=== PATIENT | female | born 1980 | race Caucasian/White ===

== ENCOUNTER 2019-05-20 18:22 | Emergency (ER) | payer SELFPAY ==
[2019-05-20] MEDS ORDERED: Ondansetron 4 MG Tab.DIS PO ONE (18:46)
--- NOTE | 2019-05-20 18:53 | EDM.PDOC ---
ED HPI GENERAL MEDICAL PROBLEM - General Chief Complaint: General Stated Complaint: PT HAS FLU Time Seen by Provider: 05/20/19 18:25 Source of Information: Reports: Patient History Limitations: Reports: No Limitations - History of Present Illness INITIAL COMMENTS - FREE TEXT/NARRATIVE: PEDS HISTORY AND PHYSICAL: History of present illness: Patient is a 39-year-old female who presents to the emergency room today with complaints of nausea, vomiting and subjective fever and chills since Friday. She is here with her daughter who is also checked in stating that everyone in the house "has been sick over the past few days. Patient reports she is concerned as they all have the flu. Patient denies any fever, chills, headache, change in vision, syncope or near syncope. Denies any chest pain, back pain, shortness of breath or cough. Denies any abdominal pain, diarrhea, constipation or dysuria. Denies any chance of . Has not noted any blood in urine or stool. Patient has been eating and drinking appropriately. Review of systems: As per history of present illness and below otherwise all systems reviewed and negative. Past medical history: As per history of present illness and as reviewed below otherwise noncontributory. Surgical history: As per history of present illness and as reviewed below otherwise noncontributory. Social history: No reported history of drug or alcohol abuse. Family history: As per history of present illness and as reviewed below otherwise noncontributory. Physical exam: General: Well-developed and well nourished 39-year-old female. Alert and oriented. Nontoxic appearing and in no acute distress. HEENT: Atraumatic, normocephalic, pupils reactive, negative for conjunctival pallor or scleral icterus, mucous membranes moist, throat clear, neck supple, nontender, trachea midline. TMs normal bilaterally, no cervical adenopathy or nuchal rigidity. Lungs: Clear to auscultation, breath sounds equal bilaterally, chest nontender. Heart: S1S2, regular rate and rhythm, no overt murmurs Abdomen: Soft, nondistended, nontender. Negative for masses or hepatosplenomegaly. Normal abdominal bowel sounds. Pelvis: Stable nontender. Extremities: Atraumatic, full range of motion without defects or deficits. Neurovascular unremarkable. Neuro: Awake, alert, and age appropriate. Cranial nerves II through XII unremarkable. Cerebellum unremarkable. Motor and sensory unremarkable throughout. Exam nonfocal. Skin: Normal turgor, no overt rash or lesions Notes: We discussed doing lab work along with doing IV fluids. Patient would prefer to try the Zofran ODT and an oral challenge afterwards. She did keep down popsicle and juice. States she does feel improvement. She would like to be discharged to home with supportive care measures. Diagnostics: Influenza Therapeutics: Zofran ODT Prescription: Zofran (#10) Impression: Viral illness Plan: 1. Please use Tylenol and/or Ibuprofen as needed for pain and fever management. 2. Get plenty of Rest. Encourage fluids to prevent dehydration. 3. Please follow up with your primary care provider. Return to the ED as needed as discussed. Definitive disposition and diagnosis as appropriate pending reevaluation and review of above. - Related Data Allergies Allergy/AdvReac Type Severity Reaction Status Date / Time meloxicam [From P[employer]] Allergy Mild Hives Verified 05/20/19 18:52 Home Meds: Home Meds Amitriptyline HCl 150 mg PO DAILY 05/20/19 [History] Citalopram [Citalopram HBr] 20 mg PO DAILY 05/20/19 [History] metFORMIN HCl [Metformin HCl] 500 mg PO DAILY 05/20/19 [History] ED ROS GENERAL - Review of Systems Review Of Systems: ROS reveals no pertinent complaints other than HPI. ED EXAM, GENERAL - Physical Exam Exam: See Below (See dictation) Course - Vital Signs Last Recorded V/S: Last Vital Signs Temp 94.8 F L 05/20/19 18:55 Pulse 94 05/20/19 19:22 Resp 18 05/20/19 19:22 BP 149/93 H 05/20/19 19:22 Pulse Ox 94 L 05/20/19 19:22 - Orders/Labs/Meds Meds: Medications Discontinued Medications Generic Name Dose Route Start Last Admin Trade Name Freq PRN Reason Stop Dose Admin Ondansetron HCl 4 mg 05/20/19 18:46 05/20/19 18:50 Zofran Odt PO 05/20/19 18:47 4 mg ONETIME ONE Administration Departure - Departure Time of Disposition: 19:35 Disposition: Home, Self-Care 01 Clinical Impression: Viral illness - Discharge Information Instructions: Viral Illness, Adult Referrals: PCP,None [Primary Care Provider] - Forms: ED Department Discharge Additional Instructions: The following information is given to patients seen in the emergency department who are being discharged to home. This information is to outline your options for follow-up care. We provide all patients seen in our emergency department with a follow-up referral. The need for follow-up, as well as the timing and circumstances, are variable depending upon the specifics of your emergency department visit. If you don't have a primary care physician on staff, we will provide you with a referral. We always advise you to contact your personal physician following an emergency department visit to inform them of the circumstance of the visit and for follow-up with them and/or the need for any referrals to a consulting specialist. The emergency department will also refer you to a specialist when appropriate. This referral assures that you have the opportunity for follow-up care with a specialist. All of these measure are taken in an effort to provide you with optimal care, which includes your follow-up. Under all circumstances we always encourage you to contact your private physician who remains a resource for coordinating your care. When calling for follow-up care, please make the office aware that this follow-up is from your recent emergency room visit. If for any reason you are refused follow-up, please contact the [facility] Department at and asked to speak to the emergency department charge nurse. [facility] [address] [place] [id number] [address] [phone] 1. Please use Tylenol and/or Ibuprofen as needed for pain and fever management. 2. Get plenty of Rest. Encourage fluids to prevent dehydration. 3. Please follow up with your primary care provider. Return to the ED as needed as discussed.
== END 2019-05-20 19:45 | disposition home or self-care (01) ==
LOC: MW.ED 18:22
DX: B34.9 Viral infection, unspecified (principal); Z88.8 Allergy status to other drugs, medicaments and biological substances
CPT/HCPCS: 87804; 99284; A9270

== ENCOUNTER 2020-07-01 11:07 | Emergency (ER) | payer MEDICAID | END 2020-07-01 14:11 | disposition left against medical advice (07) | LOC: MW.ED 11:07 | DX: Z53.21 Procedure and treatment not carried out due to patient leaving prior to being seen by health care provider (principal) ==

== ENCOUNTER 2020-07-02 20:04 | Emergency (ER) | payer MEDICAID ==
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
[2020-07-02] MEDS ORDERED: Acetaminophen/oxyCODONE 325-10 MG Tab PO ONE (21:01)
== END 2020-07-02 21:16 | disposition home or self-care (01) ==
LOC: MW.ED 20:04
DX: M54.5 Low back pain (principal); J45.909 Unspecified asthma, uncomplicated; E66.9 Obesity, unspecified; E11.9 Type 2 diabetes mellitus without complications; F41.9 Anxiety disorder, unspecified; Z68.41 Body mass index [BMI] 40.0-44.9, adult; Z88.8 Allergy status to other drugs, medicaments and biological substances; Z79.899 Other long term (current) drug therapy
CPT/HCPCS: 99283; A9270

== ENCOUNTER 2020-07-18 21:33 | Emergency (ER) | payer MEDICAID ==
--- NOTE | 2020-07-18 22:43 | EDM.PDOC ---
ED HPI GENERAL MEDICAL PROBLEM - General Chief Complaint: Upper Extremity Injury/Pain Stated Complaint: RIGHT HAND INJURY Time Seen by Provider: 07/18/20 22:30 - History of Present Illness INITIAL COMMENTS - FREE TEXT/NARRATIVE: 40-year-old female who is otherwise well who is presenting with 2 days of atraumatic gradually worsening pain in the interphalangeal joint of the right thumb it worsens with flexion and extension and is accompanied by a palpable catch and click the pain does not radiate there is no fever no forearm pain no other digit injury or pain pain is associated with swelling that is gradually worsening. No fevers no chills no history of gout no history of similar problems. Right Finger-Thumb Pain Score (Numeric/FACES): 10 - Related Data Allergies Allergy/AdvReac Type Severity Reaction Status Date / Time meloxicam [From [facility]] Allergy Mild Hives Verified 07/18/20 21:58 Home Meds: Home Meds Amitriptyline HCl 150 mg PO DAILY 05/20/19 [History] Acetaminophen/HYDROcodone [Hornitos 325-5 MG] 1 dose PO Q4H #20 tablet 07/02/20 [Rx] Escitalopram Oxalate [Lexapro] 20 mg PO DAILY 07/02/20 [History] Ibuprofen 600 mg PO TID 5 Days #15 tablet 07/18/20 [Rx] Past Medical History HEENT History: Reports: None Cardiovascular History: Reports: None Respiratory History: Reports: Asthma Gastrointestinal History: Reports: None Genitourinary History: Reports: None [employer] History: Reports: Musculoskeletal History: Reports: Back Pain, Chronic Other Musculoskeletal History: L1 S5 degenerating disk Psychiatric History: Reports: Anxiety Endocrine/Metabolic History: Reports: Obesity/BMI 30+ Hematologic History: Reports: None Immunologic History: Reports: None Oncologic (Cancer) History: Reports: None Dermatologic History: Reports: None - Infectious Disease History Infectious Disease History: Reports: Chicken Pox - Past Surgical History Head Surgeries/Procedures: Reports: None Cardiovascular Surgical History: Reports: None Endocrine Surgical History: Reports: None Musculoskeletal Surgical History: Reports: None Oncologic Surgical History: Reports: None Social & Family History - Family History Family Medical History: No Pertinent Family History - Tobacco Use Tobacco Use Status *Q: Current Every Day Tobacco User Years of Tobacco use: 20 Packs/Tins Daily: 1 - Caffeine Use Caffeine Use: Reports: None - Recreational Drug Use Recreational Drug Use: No Review of Systems - Review of Systems Review Of Systems: See Below Constitutional: Reports: No Symptoms Respiratory: Reports: No Symptoms Cardiovascular: Reports: No Symptoms GI/Abdominal: Reports: No Symptoms Musculoskeletal: Reports: Other (per HPI) Skin: Reports: No Symptoms Neurological: Reports: No Symptoms ED EXAM, GENERAL - Physical Exam Exam: See Below Free Text/Narrative:: General Appearance: No acute distress, appears comfortable Skin: No rash HEENT: Normocephalic/atraumatic, sclera anicteric, mucous membranes moist Neck: Normal range of motion Musculoskeletal: 2+ right radial pulse, normal cap refill in all digits, range of motion of the digits is normal with the exception of the interphalangeal joint of thumb there is significant tenderness over the flexor surface there is a palpable catching release with attempted flexion or extension there is some mild swelling surrounding this there is no erythema Neurologic: Awake, alert, no obvious deficits, moving all extremities Psychiatric: Appropriate, cooperative Course - Vital Signs Last Recorded V/S: Last Vital Signs Temp 97.8 F 07/18/20 21:54 Pulse 100 07/18/20 21:54 Resp 20 07/18/20 21:54 BP 138/83 07/18/20 21:54 Pulse Ox 97 07/18/20 21:54 - Orders/Labs/Meds Orders: Active Orders 24 hr Category Date Time Status DME for Discharge [COMM] Stat Oth 07/18/20 22:55 Ordered Departure - Departure Time of Disposition: 22:52 Disposition: Home, Self-Care 01 Condition: Good Clinical Impression: Flexor tenosynovitis of thumb - Discharge Information *PRESCRIPTION DRUG MONITORING PROGRAM REVIEWED*: Not Applicable *COPY OF PRESCRIPTION DRUG MONITORING REPORT IN PATIENT JANIYA: Not Applicable Prescriptions: Ibuprofen 600 mg PO TID 5 Days #15 tablet Instructions: Tenosynovitis Referrals: Zelalem Barahona MD [Physician] - (call tomorrow to make a follow-up appointment.) Forms: ED Department Discharge Additional Instructions: Please wear the protective splint to help prevent the painful motion please be sure to follow-up with orthopedic surgery. If you develop any fever worsening swelling or worsening pain you have not yet seen the orthopedic surgeon please return to the ER. The following information is given to patients seen in the emergency department who are being discharged to home. This information is to outline your options for follow-up care. We provide all patients seen in our emergency department with a follow-up referral. The need for follow-up, as well as the timing and circumstances, are variable depending upon the specifics of your emergency department visit. If you don't have a primary care physician on staff, we will provide you with a referral. We always advise you to contact your personal physician following an emergency department visit to inform them of the circumstance of the visit and for follow-up with them and/or the need for any referrals to a consulting specialist. The emergency department will also refer you to a specialist when appropriate. This referral assures that you have the opportunity for follow-up care with a specialist. All of these measure are taken in an effort to provide you with optimal care, which includes your follow-up. Under all circumstances we always encourage you to contact your private physician who remains a resource for coordinating your care. When calling for follow-up care, please make the office aware that this follow-up is from your recent emergency room visit. If for any reason you are refused follow-up, please contact the Emergency Dep artment at and asked to speak to the emergency department charge nurse. Sepsis Event Note (ED) - Evaluation Sepsis Screening Result: No Definite Risk - Focused Exam Vital Signs: Vital Signs Temp Pulse Resp BP Pulse Ox 07/18/20 21:54 97.8 F 100 20 138/83 97 - My Orders Last 24 Hours: My Active Orders 07/18/20 22:55 DME for Discharge [COMM] Stat - Assessment/Plan Last 24 Hours: My Active Orders 07/18/20 22:55 DME for Discharge [COMM] Stat Assessment:: 40-year-old female presenting with signs and symptoms that are most consistent with a flexor tenosynovitis (trigger thumb). There is no local skin violation erythema on the thenar eminence or other indications that would suggest an infectious tenosynovitis. XR pending. No findings that would suggest gout or joint infection. If x-ray negative would plan for splinting and if there is a true NSAID allergy then would do systemic record reports patient will need orthopedic follow-up. XR negative per my preliminary interpretation. Patient confirms that she can tolerate ibuprofen without a problem patient placed in splint will follow up with orthopedic surgery in 5 days burst of ibuprofen.
--- NOTE | 2020-07-18 22:50 | CR ---
INDICATION: Thumb pain. RIGHT HAND No fracture, dislocation, or destructive lesion of bone is seen. No arthritic changes or soft tissue abnormalities are identified. IMPRESSION: Negative right hand radiographs. COURT MURDOCK MD [facility] Dictated by: Baldomero Murdock MD @ 07/18/2020 22:49:12 (Electronically Signed)
== END 2020-07-18 23:11 | disposition home or self-care (01) ==
LOC: MW.ED 21:33
DX: M65.9 Synovitis and tenosynovitis, unspecified (principal); J45.909 Unspecified asthma, uncomplicated; F41.9 Anxiety disorder, unspecified; F17.210 Nicotine dependence, cigarettes, uncomplicated; E66.9 Obesity, unspecified; Z68.41 Body mass index [BMI] 40.0-44.9, adult; Z79.899 Other long term (current) drug therapy; Z88.6 Allergy status to analgesic agent
CPT/HCPCS: 73120-26-RT; 73120-RT; 99282; 99283

== ENCOUNTER 2020-11-02 20:50 | Emergency (ER) | payer MEDICAID ==
[2020-11-02] MEDS ORDERED: Ipratropium 0.02% 0.5 MG/2.5 ML Neb Soln NEB ONE (21:33)
[2020-11-02] MEDS ORDERED: Dexamethasone 4 MG Tab PO ONE (21:33)
[2020-11-02] MEDS ORDERED: Albuterol 0.083% 2.5 MG/3 ML Neb Soln NEB STA (21:33)
--- NOTE | 2020-11-02 22:59 | EDM.PDOC ---
ED HPI GENERAL MEDICAL PROBLEM - General Chief Complaint: Respiratory Problem Stated Complaint: brachialis Time Seen by Provider: 11/02/20 21:23 - History of Present Illness INITIAL COMMENTS - FREE TEXT/NARRATIVE: CHIEF COMPLAINT(S): Cough HISTORY OF PRESENT ILLNESS: This is a 40-year-old and with a past medical history of tobacco use disorder and asthma who comes to the emergency department with a chief complaint of cough. The patient states that for approximately the last month she has been experiencing increased cough with congestion and a scratchy but nonsore throat. She denies any fevers or chills. She states that she has a history of bronchitis and she believes this is what it is. She states that she does not have a history of COPD but has not had the work-up. She states that throughout the year she has exacerbations consistent with bronchitis. She denies any chest pain, shortness of breath, abdominal pain, nausea or vomiting. REVIEW OF SYSTEMS: Constitutional: Denies fever, chills. Eyes: Denies eye pain Ears, Nose, Mouth, & Throat: Positive for scratchy throat. Denies sore throat. Cardiovascular: Denies chest pain Respiratory: Positive for nonproductive cough. Denies shortness of breath Gastrointestinal: Denies Nausea, vomiting, diarrhea, hematochezia. Genitourinary: Denies hematuria Skin:Denies a rash MSK: Denies joint pain Neurological: Denies blurred vision Psychiatric: Denies depression PAST MEDICAL HISTORY: As per history of present illness and as reviewed below otherwise noncontributory. SURGICAL HISTORY: As per history of present illness and as reviewed below otherwise noncontributory. SOCIAL HISTORY: As per history of present illness and as reviewed below otherwise noncontributory. FAMILY HISTORY: As per history of present illness and as reviewed below otherwise noncontributory. EXAMINATION OF ORGAN SYSTEMS/BODY AREAS: Constitutional: Blood pressure was 164/79, heart rate 95, respiratory rate 17 with an oxygen saturation 95% on room air. Temperature 36.3 General: Obese woman who does not appear to be in acute distress. Psychiatric: Appropriate mood and affect. Eyes: No scleral icterus or conjunctival erythema ENMT: Moist mucous membranes. No pharyngeal erythema no tonsillar exudates or swelling. No stridor. Cardiovascular: Regular, rate, and rhythm. No gallops, murmurs, or rubs. Bilateral upper extremity pulses symmetric and intact. No peripheral edema. No JVD. Respiratory: Patient is speaking in full sentences. No increased work of breathing. The patient has mild inspiratory and expiratory wheezing. No prolonged expiratory phase. Gastrointestinal: Soft, non-tender, non-distended. Normoactive bowel sounds Genitourinary: No suprapubic tenderness Musculoskeletal: Normal range of motion. Skin: No lesions or abrasions. Neurological: Alert, GCS 15 MEDICAL DECISION MAKING AND COURSE IN THE ED WITH INTERPRETATION/REVIEW OF DIAGNOSTIC STUDIES: This is a 40-year-old woman with a past medical history of approximately 30 years of tobacco use and possible asthma who comes to the emergency department with subacute nonproductive cough and congestion who has bilateral inspiratory and expiratory wheezing which is symmetric. At this time given her recurrent bronchitis I do believe this is COPD secondary to the patient having prolonged tobacco use. I did discuss this with the patient. I discussed that we would be providing her with dexamethasone and a DuoNeb treatment. I discussed that I do not believe any work-up otherwise indicated. We will reevaluate for symptomatic improvement. On reevaluation, the patient's wheezing had completely resolved and had good air entry bilaterally. I did discuss with the patient that I would like her to follow-up with her primary care physician for a COPD work-up. I discussed that if she had any new or worsening symptoms such as fever, worsening shortness of breath, or chest pain she need to return to the emergency department. She was amenable to discharge at this time and had no further questions DISPOSITION: The patient was discharged home in stable condition. The patient will follow up with primary care physician within 2 to 3 days CONDITION: Fair PROCEDURES: None FINAL IMPRESSION(S)/DIAGNOSES: 1. Acute bilateral wheezing, likely secondary to undiagnosed COPD 2. Tobacco use disorder Lalo Izaguirre M.D. - Related Data Allergies Allergy/AdvReac Type Severity Reaction Status Date / Time meloxicam [From [facility]] Allergy Mild Hives Verified 11/02/20 21:10 latex Allergy Hives Verified 11/02/20 21:10 Home Meds: Home Meds Amitriptyline HCl 150 mg PO DAILY 05/20/19 [History] Escitalopram Oxalate [Lexapro] 20 mg PO DAILY 07/02/20 [History] Ibuprofen 600 mg PO TID 5 Days #15 tablet 07/18/20 [Rx] Albuterol [Proventil HFA] 200 puff INH Q6H #1 inhaler 11/02/20 [Rx] Past Medical History HEENT History: Reports: None Cardiovascular History: Reports: None Respiratory History: Reports: Asthma Gastrointestinal History: Reports: None Genitourinary History: Reports: None [employer] History: Reports: Musculoskeletal History: Reports: Back Pain, Chronic Other Musculoskeletal History: L1 S5 degenerating disk Psychiatric History: Reports: Anxiety Endocrine/Metabolic History: Reports: Obesity/BMI 30+ Hematologic History: Reports: None Immunologic History: Reports: None Oncologic (Cancer) History: Reports: None Dermatologic History: Reports: None - Infectious Disease History Infectious Disease History: Reports: Chicken Pox - Past Surgical History Head Surgeries/Procedures: Reports: None Cardiovascular Surgical History: Reports: None Endocrine Surgical History: Reports: None Musculoskeletal Surgical History: Reports: None Oncologic Surgical History: Reports: None Social & Family History - Family History Family Medical History: No Pertinent Family History - Tobacco Use Tobacco Use Status *Q: Current Every Day Tobacco User Years of Tobacco use: 18 Packs/Tins Daily: 1 - Caffeine Use Caffeine Use: Reports: Coffee, Energy Drinks, Soda - Recreational Drug Use Recreational Drug Use: No ED ROS GENERAL - Review of Systems Review Of Systems: See Below ED EXAM, GENERAL - Physical Exam Exam: See Below Course - Vital Signs Last Recorded V/S: Last Vital Signs Temp 36.3 C 11/02/20 21:11 Pulse 95 11/02/20 21:11 Resp 17 11/02/20 21:11 BP 164/79 H 11/02/20 21:11 Pulse Ox 95 11/02/20 21:11 - Orders/Labs/Meds Meds: Medications Discontinued Medications Generic Name Dose Route Start Last Admin Trade Name Petr PRN Reason Stop Dose Admin Albuterol 5 mg 11/02/20 21:33 11/02/20 22:01 Proventil Neb Soln NEB 11/02/20 21:34 5 mg ONETIME STA Administration Dexamethasone 10 mg 11/02/20 21:33 11/02/20 22:00 Dexamethasone PO 11/02/20 21:34 10 mg ONETIME ONE Administration Ipratropium [place] 0.5 mg 11/02/20 21:33 11/02/20 22:01 Atrovent NEB 11/02/20 21:34 0.5 mg ONETIME ONE Administration Departure - Departure Time of Disposition: 22:58 Disposition: Home, Self-Care 01 Condition: Fair Clinical Impression: Bronchitis - Discharge Information *PRESCRIPTION DRUG MONITORING PROGRAM REVIEWED*: No *COPY OF PRESCRIPTION DRUG MONITORING REPORT IN PATIENT JANIYA: No Prescriptions: Albuterol [Proventil HFA] 200 puff INH Q6H #1 inhaler Instructions: Chronic Obstructive Pulmonary Disease Exacerbation, [id number] Referrals: PCP,None [Primary Care Provider] - Forms: ED Department Discharge Additional Instructions: You were evaluated today on an emergent basis. I do believe that you have a degree of chronic obstructive pulmonary disease. I recommend that you follow-up with your primary care physician for further evaluation and treatment. You may need to be on additional controlling inhalers. I did send you a prescription of year albuterol inhaler and did provide you with steroids here which should last approximately 3 days. If you have any new or worsening symptoms such as worsening shortness of breath, fever or chest pain please return to the emergency department please follow-up with your primary care physician within 2 to 3 days [facility] [address] [place] [address] [place] [address] The patient is informed of any results of their evaluation and diagnostic workup and all questions are answered. They are given discharge instructions and return precautions. The patient is stable for discharge. The patient states they understand and agree with the plan and that they will return if their symptoms get worse or if they have any new concerns. The following information is given to patients seen in the emergency department who are being discharged to home. This information is to outline your options for follow-up care. We provide all patients seen in our emergency department wi th a follow-up referral. The need for follow-up, as well as the timing and circumstances, are variable depending upon the specifics of your emergency department visit. If you don't have a primary care physician on staff, we will provide you with a referral. We always advise you to contact your personal physician following an emergency department visit to inform them of the circumstance of the visit and for follow-up with them and/or the need for any referrals to a consulting specialist. The emergency department will also refer you to a specialist when appropriate. This referral assures that you have the opportunity for follow-up care with a specialist. All of these measure are taken in an effort to provide you with optimal care, which includes your follow-up. Under all circumstances we always encourage you to contact your private physician who remains a resource for coordinating your care. When calling for follow-up care, please make the office aware that this follow-up is from your recent emergency room visit. If for any reason you are refused follow-up, please contact the [facility] Emergency Department at and asked to speak to the emergency department charge nurse. Sepsis Event Note (ED) - Evaluation Sepsis Screening Result: No Definite Risk
== END 2020-11-02 23:10 | disposition home or self-care (01) ==
LOC: MW.ED 20:50
DX: J40 Bronchitis, not specified as acute or chronic (principal); E66.9 Obesity, unspecified; Z68.41 Body mass index [BMI] 40.0-44.9, adult; Z72.0 Tobacco use; Z91.040 Latex allergy status; Z88.1 Allergy status to other antibiotic agents; Z79.899 Other long term (current) drug therapy
CPT/HCPCS: 99283; J8540

== ENCOUNTER 2021-05-20 16:28 | Emergency (ER) | payer MEDICAID ==
[2021-05-20] MEDS ORDERED: predniSONE 20 MG Tab PO STA (17:12)
--- NOTE | 2021-05-20 17:27 | EDM.PDOC ---
ED HPI GENERAL MEDICAL PROBLEM - General Chief Complaint: Respiratory Problem Stated Complaint: POSSIBLE BRONCHITIS Time Seen by Provider: 05/20/21 16:48 Source of Information: Reports: Patient History Limitations: Reports: No Limitations - History of Present Illness INITIAL COMMENTS - FREE TEXT/NARRATIVE: HISTORY AND PHYSICAL: History of present illness: Patient is a 41-year-old female who presents to the emergency room with complaints of cough and chest tightness. Patient states she has a history of asthma and uses an albuterol inhaler as needed. She was out at the [employer] over the weekend and felt like she was breathing in a lot of "smoke". And since has had use her inhaler more frequently and a harsh cough. Patient denies any fever, chills, headache, change in vision, syncope or near syncope. Denies any chest pain, back pain, shortness of breath or hemoptysis. Denies any abdominal pain, nausea, vomiting, diarrhea, constipation or dysuria. Has not noted any bl ood in urine or stool. Patient has been eating and drinking appropriately. Review of systems: As per history of present illness and below otherwise all systems reviewed and negative. Past medical history: As per history of present illness and as reviewed below otherwise noncontributory. Surgical history: As per history of present illness and as reviewed below otherwise noncontributory. Social history: See social history for further information Family history: As per history of present illness and as reviewed below otherwise noncontributory. Physical exam: General: Well developed and well nourished. Alert and orientated x 3. Nontoxic in appearance and in no acute distress. Vital signs are stable and have been reviewed by me. Nursing notes were reviewed. HEENT: Atraumatic, normocephalic, pupils equal and reactive bilaterally, negative for conjunctival pallor or scleral icterus, mucous membranes moist, TMs normal bilaterally, throat clear, neck supple, nontender, trachea midline. No drooling or trismus noted. No meningeal signs. No hot potato voice noted. Lungs: Fine expiratory wheezing to bases to auscultation bilaterally. No rales, or rhonchi. Chest nontender. Normal work of breathing, no accessory muscles used. Heart: S1S2, regular rate and rhythm without overt murmur, gallops, or rubs. No JVD. No peripheral edema Abdomen: Soft, nondistended, nontender. Skin: Intact, warm, dry. No lesions or rashes noted. Hematologic: No petechiae or purpra. Mucosa appropriate color and normal nail bed color and refill. Extremities: Atraumatic, moves all extremities per self without difficulty or deficits, negative for cords or calf pain. Neurovascular unremarkable. Neuro: Awake, alert, oriented. Cranial nerves II through XII unremarkable. Cerebellum unremarkable. Motor and sensory unremarkable throughout. Exam nonfocal. Psychiatric: Mood and affect are appropriate. Normal thought process. Answering questions appropriately. Please note that the patient was seen and evaluated during the 2019 SARS-CoV-2 novel coronavirus pandemic period. Community viral transmission is ongoing at time of this encounter and the emergency department is operating under pandemic response procedures. Medical Decision Making: Patient refuses COVID screening. She is agreeable to a chest x-ray. She states she is to have a nebulizer machine at home but had lost it during a move. Will prescribe nebulizer machine, steroid and antibiotic due to symptoms and pulmonary history. I have talked with the patient about today's findings, in addition to providing specific details for plan of care. Reassessment at the time of disposition demonstrates that the patient is in no acute distress. The patient is stable for discharge, counseling was provided and we discussed in great detail signs and symptoms that would prompt them to return to the Emergency Department. Medication, follow up and supportive care measures were reviewed and discussed. Voices understanding and is agreeable to plan of care. Denies any further questions or concerns at this time. Diagnostics: Chest x-ray Therapeutics: Prednisone, azithromycin Prescription: Prednisone, azithromycin, nebulizer machine, DuoNeb Impression: Asthma exacerbation Acute bronchitis Plan: 1. You were evaluated today on an emergent basis. Please take your medications as directed. I have given you a prescription for a nebulizer machine which you can picker tender at [facility] on Friday. 2. You can alternate Tylenol and ibuprofen as needed for pain and fever management. 3. We encourage you to follow up with your primary care provider and/or recommended specialist in the next few days for re-evaluation and further care/management. 4. If your symptoms should worsen, new symptoms develop or any of the signs and symptoms we discussed should arise please return to the emergency room or call 911 (if needed). Definitive disposition and diagnosis as appropriate pending reevaluation and review of above. lung Pain Score (Numeric/FACES): 4 - Related Data Allergies Allergy/AdvReac Type Severity Reaction Status Date / Time meloxicam [From Mobic] Allergy Mild Hives Verified 05/20/21 16:57 latex Allergy Hives Verified 05/20/21 16:57 Home Meds: Home Meds Amitriptyline HCl 150 mg PO DAILY 05/20/19 [History] Escitalopram Oxalate [Lexapro] 20 mg PO DAILY 07/02/20 [History] Ibuprofen 600 mg PO TID 5 Days #15 tablet 07/18/20 [Rx] Albuterol [Proventil HFA] 200 puff INH Q6H #1 inhaler 11/02/20 [Rx] Albuterol/Ipratropium [DuoNeb 3.0-0.5 MG/3 ML] 1 ampule INH Q4HR PRN #1 box 05/20/21 [Rx] Azithromycin [Zithromax] 1 dose PO DAILY 4 Days #4 tab 05/20/21 [Rx] Phentermine HCl 37.5 mg PO DAILY 05/20/21 [History] predniSONE [Prednisone] 40 mg PO DAILY 4 Days #8 tablet 05/20/21 [Rx] Past Medical History HEENT History: Reports: None Cardiovascular History: Reports: None Respiratory History: Reports: Asthma Gastrointestinal History: Reports: None Genitourinary History: Reports: None 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: Musculoskeletal History: Reports: Back Pain, Chronic Other Musculoskeletal History: L1 S5 degenerating disk Psychiatric History: Reports: Anxiety Endocrine/Metabolic History: Reports: Obesity/BMI 30+ Hematologic History: Reports: None Immunologic History: Reports: None Oncologic (Cancer) History: Reports: None Dermatologic History: Reports: None - Infectious Disease History Infectious Disease History: Reports: Chicken Pox - Past Surgical History Head Surgeries/Procedures: Reports: None Cardiovascular Surgical History: Reports: None Endocrine Surgical History: Reports: None Musculoskeletal Surgical History: Reports: None Oncologic Surgical History: Reports: None Social & Family History - Family History Family Medical History: No Pertinent Family History - Caffeine Use Caffeine Use: Reports: Coffee, Energy Drinks, Soda ED ROS GENERAL - Review of Systems Review Of Systems: Comprehensive ROS is negative, except as noted in HPI. ED EXAM, GENERAL - Physical Exam Exam: See Below (See dictation) Course - Vital Signs Last Recorded V/S: Last Vital Signs Temp 97.6 F 05/20/21 16:58 Pulse 94 05/20/21 16:58 Resp 18 05/20/21 16:58 BP 142/89 H 05/20/21 16:58 Pulse Ox 95 05/20/21 16:58 - Orders/Labs/Meds Orders: Active Orders 24 hr Category Date Time Status Chest 1V Frontal [CR] Stat Exams 05/20/21 17:11 Ordered Meds: Medications Discontinued Medications Generic Name Dose Route Start Last Admin Trade Name Freq PRN Reason Stop Dose Admin Azithromycin 500 mg 05/20/21 17:47 Azithromycin 250 Mg Tab PO 05/20/21 17:48 NOW STA Prednisone 40 mg 05/20/21 17:12 05/20/21 17:18 Prednisone 20 Mg Tab PO 05/20/21 17:13 40 mg NOW STA Administration Departure - Departure Time of Disposition: 17:52 Disposition: Home, Self-Care 01 Clinical Impression: Exacerbation of asthma, Bronchitis - Discharge Information Prescriptions: Albuterol/Ipratropium [DuoNeb 3.0-0.5 MG/3 ML] 1 ampule INH Q4HR PRN #1 box PRN Reason: Dyspnea predniSONE [Prednisone] 40 mg PO DAILY 4 Days #8 tablet Azithromycin [Zithromax] 1 dose PO DAILY 4 Days #4 tab Instructions: Acute Bronchitis, Adult, [id number] Referrals: Doc Beach MD [Primary Care Provider] - Forms: ED Department Discharge Additional Instructions: The following information is given to patients seen in the emergency department who are being discharged to home. This information is to outline your options for follow-up care. We provide all patients seen in our emergency department with a follow-up referral. The need for follow-up, as well as the timing and circumstances, are variable depending upon the specifics of your emergency department visit. If you don't have a primary care physician on staff, we will provide you with a referral. We always advise you to contact your personal physician following an emergency department visit to inform them of the circumstance of the visit and for follow-up with them and/or the need for any referrals to a consulting specialist. The emergency department will also refer you to a specialist when appropriate. This referral assures that you have the opportunity for follow-up care with a specialist. All of these measure are taken in an effort to provide you with optimal care, which includes your follow-up. Under all circumstances we always encourage you to contact your private physician who remains a resource for coordinating your care. When calling for follow-up care, please make the office aware that this follow-up is from your recent emergency room visit. If for any reason you are refused follow-up, please contact the [facility] Emergency Department at and asked to speak to the emergency department charge nurse. [facility] [address] [place] [id number] [facility] [address] [place] [id number] Thank you for choosing the [facility] emergency department in [place] for your medical needs today. It was a pleasure caring for you. Today you were seen in the emergency department for cough. 1. You were evaluated today on an emergent basis. Please take your medications as directed. I have given you a prescription for a nebulizer machine which you can picker tender at [facility] on Friday. 2. You can alternate Tylenol and ibuprofen as needed for pain and fever managem ent. 3. We encourage you to follow up with your primary care provider and/or recommended specialist in the next few days for re-evaluation and further care/management. 4. If your symptoms should worsen, new symptoms develop or any of the signs and symptoms we discussed should arise please return to the emergency room or call 911 (if needed). Sepsis Event Note (ED) - Evaluation Sepsis Screening Result: No Definite Risk - Focused Exam Vital Signs: Vital Signs Temp Pulse Resp BP Pulse Ox 05/20/21 16:58 97.6 F 94 18 142/89 H 95 - My Orders Last 24 Hours: My Active Orders 05/20/21 17:11 Chest 1V Frontal [CR] Stat - Assessment/Plan Last 24 Hours: My Active Orders 05/20/21 17:11 Chest 1V Frontal [CR] Stat
[2021-05-20] MEDS ORDERED: Azithromycin 250 MG Tab PO STA (17:47)
--- NOTE | 2021-05-20 18:33 | CR ---
HISTORY: Chest pain and shortness of breath. COMPARISON: None available FINDINGS: A single erect AP view of the chest was obtained at 17 41 hours. The lungs are clear. No focal or diffuse infiltrates are present. The heart is normal in size. The mediastinum is normal in appearance. The osseous structures are normal in appearance for the patient`s age. IMPRESSION: Normal portable chest single view. Dictated by Norberto Martinez MD @ 05/20/2021 6:32:03 PM (Electronically Signed)
== END 2021-05-20 18:04 | disposition home or self-care (01) ==
LOC: MW.ED 16:28
DX: J45.901 Unspecified asthma with (acute) exacerbation (principal); J20.9 Acute bronchitis, unspecified; Z91.040 Latex allergy status; Z88.8 Allergy status to other drugs, medicaments and biological substances; Z79.899 Other long term (current) drug therapy
CPT/HCPCS: 71045; 99283; A9270

== ENCOUNTER 2021-07-08 11:54 | Emergency (ER) | payer MEDICAID ==
--- NOTE | 2021-07-08 13:26 | EDM.PDOC ---
ED HPI GENERAL MEDICAL PROBLEM - General Chief Complaint: Respiratory Problem Stated Complaint: SINUS INFECTION Time Seen by Provider: 07/08/21 13:13 Source of Information: Reports: Patient History Limitations: Reports: No Limitations - History of Present Illness INITIAL COMMENTS - FREE TEXT/NARRATIVE: HISTORY AND PHYSICAL: History of present illness: Patient is a 41-year-old female with a history of asthma, and significant smoking history, who presents emergency room today with concern of cough x14 days. Patient states that she does have a history of "chronic bronchitis "that she gets every year and states that she tried telling her boss that this was just bronchitis. Patient states that her boss had sent her in because her cough has been so significant he was concerned about COVID-19. Patient states that she feels that she just has bronchitis and has had this cough for 14 days and denies any other associated symptoms. Patient states that she has been wheezing and has been using her inhalers and states that they do help with the wheezing. Patient states that in the past, she has received steroids and antibiotics for "asthma exacerbation "and states that this has helped her bronchitis in the past. Patient denies fever, chills, chest pain, shortness of breath. Denies headache, neck stiff ness, change in vision, syncope, or near syncope. Denies nausea, v omiting, abdominal pain, diarrhea, constipation, or dysuria. Has not noted any blood in urine or stool. Patient has been eating and drinking appropriately. Review of systems: As per history of present illness and below otherwise all systems reviewed and negative. Past medical history: As per history of present illness and as reviewed below otherwise noncontributory. Surgical history: As per history of present illness and as reviewed below otherwise noncontributory. Social history: See social history for further information Family history: As per history of present illness and as reviewed below otherwise noncontributory. Physical exam: General: Patient is alert, oriented, and in no acute distress. Patient sitting comfortably on exam table. Vitals stable and reviewed by me. HEENT: Atraumatic, normocephalic, pupils equal and reactive bilaterally, negative for conjunctival pallor or scleral icterus, mucous membranes moist, throat clear, neck supple, nontender, trachea midline. No drooling or trismus noted. No meningeal signs. No hot potato voice noted. Lungs: Diffuse expiratory wheezing on exam. Dry cough on exam. Otherwise, clear to auscultation, breath sounds equal bilaterally, chest nontender. Heart: S1S2, regular rate and rhythm without overt murmur Abdomen: Soft, nondistended, nontender. Negative for masses or hepatosplenomegaly. Negative for costovertebral tenderness. Pelvis: Stable nontender. Genitourinary: Deferred. Rectal: Deferred. Skin: Intact, warm, dry. No lesions or rashes noted. Extremities: Atraumatic, negative for cords or calf pain. Neurovascular unremarkable. Neuro: Awake, alert, oriented. Cranial nerves II through XII unremarkable. Cerebellum unremarkable. Motor and sensory unremarkable throughout. Exam nonfocal. Medical Decision Making: I do suspect that patient does have underlying COPD given her significant smoking history and frequent yearly/seasonal bronchitis. Will treat for COPD exacerbation secondary to COVID-19 infection today. She is out of the window to receive outpatient monoclonal antibody infusion given she has had 14 days of symptoms. Signs and symptoms that were prompt return to the ED thoroughly discussed with jc alegre. Discussed importance for follow-up with a primary care provider following COVID-19 quarantine restrictions. Voices understanding and is agreeable to plan of care. Denies any further questions or concerns at this time. Diagnostics: COVID 19 Therapeutics: None Prescription: Prednisone, Doxycycline (patient is out of the window to receive monoclonal antibody infusion given 14 days of symptoms) Impression: COVID-19 virus infection COPD exacerbation Plan: 1. Your COVID-19 screening is positive. That means you do have the coronavirus and are considered contagious. Your vital signs and oxygen saturation are well enough that you were able to monitor your symptoms at home. Continue to monitor for trouble breathing, new confusion or inability to arouse, bluish lips or face or any of the other symptoms we discussed -if this occurs please return to the emergency room.Continue to monitor your health at home for worsening symptoms so that you can be taken care of and treated quickly if needed. 2. Please self quarantine until 10 days have passed since your symptoms began AND you are fever free (<100.4 degrees fahrenheit) for 24 hours without the use of fever-reducing medications AND symptoms are improving. You should restrict activities outside of your home, except for getting medical care. Do not go to work, school, or public areas. Avoid using public transportation, ride-sharing, or taxis. Inform any persons that you have been in contact with since you started becoming symptomatic that you have tested positive; they should be made aware and take the appropriate steps as needed. 3. You may alternate Tylenol and ibuprofen as needed for pain and fever management. 4. [facility] will be calling you and following up with you. The [place] COVID 19 Hotline phone number , They are open Friday - Friday 7am - 7pm. Follow up with your primary care provider for re-evaluation and re-testing after quarantine and discuss when you should be seen. 6. For more specific guidelines regarding isolation/quarantine please visit this website. https://www.health.[place].gov/sites/www/files/documents/Files/[place]/coronavirus/Factsh eet_for_People_With_COVID-19.pdf Definitive disposition and diagnosis as appropriate pending reevaluation and review of above. - Related Data Allergies Allergy/AdvReac Type Severity Reaction Status Date / Time meloxicam [From Mobic] Allergy Mild Hives Verified 07/08/21 13:16 latex Allergy Hives Verified 07/08/21 13:16 Home Meds: Home Meds Amitriptyline HCl 150 mg PO DAILY 05/20/19 [History] Escitalopram Oxalate [Lexapro] 20 mg PO DAILY 07/02/20 [History] Phentermine HCl 37.5 mg PO DAILY 05/20/21 [History] Doxycycline [Vibramycin] 100 mg PO BID 5 Days #10 cap 07/08/21 [Rx] predniSONE [Prednisone] 20 mg PO DAILY 5 Days #5 tablet 07/08/21 [Rx] Past Medical History HEENT History: Reports: None Cardiovascular History: Reports: None Respiratory History: Reports: Asthma Gastrointestinal History: Reports: None Genitourinary History: Reports: 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: Musculoskeletal History: Reports: Back Pain, Chronic Other Musculoskeletal History: L1 S5 degenerating disk Psychiatric History: Reports: Anxiety Endocrine/Metabolic History: Reports: Obesity/BMI 30+ Hematologic History: Reports: None Immunologic History: Reports: None Oncologic (Cancer) History: Reports: None Dermatologic History: Reports: None - Infectious Disease History Infectious Disease History: Reports: Chicken Pox - Past Surgical History Head Surgeries/Procedures: Reports: None Cardiovascular Surgical History: Reports: None Endocrine Surgical History: Reports: None Musculoskeletal Surgical History: Reports: None Oncologic Surgical History: Reports: None Social & Family History - Family History Family Medical History: No Pertinent Family History - Tobacco Use Second Hand Smoke Exposure: No - Caffeine Use Caffeine Use: Reports: None - Recreational Drug Use Recreational Drug Use: No ED ROS GENERAL - Review of Systems Review Of Systems: Comprehensive ROS is negative, except as noted in HPI. ED EXAM, GENERAL - Physical Exam Exam: See Below (see dictation) Course - Vital Signs Last Recorded V/S: Last Vital Signs Temp 96.6 F L 07/08/21 13:15 Pulse 87 07/08/21 13:37 Resp 20 07/08/21 13:37 BP 145/75 H 07/08/21 13:37 Pulse Ox 98 07/08/21 13:37 - Orders/Labs/Meds Labs: Laboratory Tests 07/08/21 Range/Units 13:30 SARS-CoV-2 RNA ([place]) POSITIVE H (NEGATIVE) Departure - Departure Time of Disposition: 13:25 Disposition: Home, Self-Care 01 Clinical Impression: COVID-19 virus infection, COPD exacerbation - Discharge Information Prescriptions: predniSONE [Prednisone] 20 mg PO DAILY 5 Days #5 tablet Doxycycline [Vibramycin] 100 mg PO BID 5 Days #10 cap Instructions: Acute Bronchitis, Adult, [id number], Asthma, Adult, [id number] Referrals: Doc Beach MD [Primary Care Provider] - Forms: ED Department Discharge Additional Instructions: The following information is given to patients seen in the emergency department who are being discharged to home. This information is to outline your options for follow-up care. We provide all patients seen in our emergency department with a follow-up referral. The need for follow-up, as well as the timing and circumstances, are variable depending upon the specifics of your emergency department visit. If you don't have a primary care physician on staff, we will provide you with a referral. We always advise you to contact your personal physician following an emergency department visit to inform them of the circumstance of the visit and for follow-up with them and/or the need for any referrals to a consulting sp ecialist. The emergency department will also refer you to a specialist when appropriate. This referral assures that you have the opportunity for follow-up care with a specialist. All of these measure are taken in an effort to provide you with optimal care, which includes your follow-up. Under all circumstances we always encourage you to contact your private physician who remains a resource for coordinating your care. When calling for follow-up care, please make the office aware that this follow-up is from your recent emergency room visit. If for any reason you are refused follow-up, please contact the [facility] Emergency Department at and asked to speak to the emergency department charge nurse. [facility] [address] [address] [facility] [address] [place] [id number] 1. Your COVID-19 screening is positive. That means you do have the coronavirus and are considered contagious. Your vital signs and oxygen saturation are well enough that you were able to monitor your symptoms at home. Continue to monitor for trouble breathing, new confusion or inability to arouse, bluish lips or face or any of the other symptoms we discussed -if this occurs please return to the emergency room.Continue to monitor your health at home for worsening symptoms so that you can be taken care of and treated quickly if needed. 2. Please self quarantine until 10 days have passed since your symptoms began AND you are fever free (<100.4 degrees fahrenheit) for 24 hours without the use of fever-reducing medications AND symptoms are improving. You should restrict activities outside of your home, except for getting medical care. Do not go to work, school, or public areas. Avoid using public transportation, ride-sharing, or taxis. Inform any persons that you have been in contact with since you started becoming symptomatic that you have tested positive; they should be made aware and take the appropriate steps as needed. 3. You may alternate Tylenol and ibuprofen as needed for pain and fever management. 4. [facility] will be calling you and following up with you. The [place] COVID 19 Hotline phone number , They are open Friday - Friday 7am - 7pm. Follow up with your primary care provider for re-evaluation and re-testing after quarantine and discuss when you should be seen. 6. For more specific guidelines regarding isolation/quarantine please visit this website. https://www.health.[place].gov/sites/www/files/documents/Files/[place]/coronavirus/Factsh eet_for_People_With_COVID-19.pdf Sepsis Event Note (ED) - Evaluation Sepsis Screening Result: No Definite Risk - Focused Exam Vital Signs: Vital Signs Temp Pulse Resp BP Pulse Ox 07/08/21 13:37 87 20 145/75 H 98 07/08/21 13:15 96.6 F L 93 20 151/88 H 96
== END 2021-07-08 13:37 | disposition home or self-care (01) ==
LOC: MW.ED 11:54
DX: U07.1 COVID-19 (principal); J44.1 Chronic obstructive pulmonary disease with (acute) exacerbation; E66.9 Obesity, unspecified; Z68.41 Body mass index [BMI] 40.0-44.9, adult; Z88.1 Allergy status to other antibiotic agents; Z91.040 Latex allergy status; Z79.899 Other long term (current) drug therapy
CPT/HCPCS: 99284; U0002

== ENCOUNTER 2022-01-23 06:03 | Day surgery (SDC) | payer MEDICAID ==
[2022-01-23] MEDS ORDERED: Lactated Ringers 1,000 ML IV SCH (06:15)
[2022-01-23] MEDS ORDERED: Midazolam 1 MG/ML 2 ML SDV ONE (06:49)
[2022-01-23] MEDS ORDERED: Ropivacaine 0.5% 5 MG/ML 30 ML SDV ONE (06:51)
[2022-01-23] MEDS ORDERED: Lidocaine 1% 20 ML MDV ONE (06:53)
[2022-01-23] MEDS ORDERED: Octyl 2-Cyanoacrylate 1 Tube ONE (06:53)
[2022-01-23] MEDS ORDERED: Bupivacaine 0.25% 30 ML SDV ONE (06:59)
[2022-01-23] MEDS ORDERED: fentaNYL 100 MCG/2 ML SDV ONE (07:37)
[2022-01-23] MEDS ORDERED: Ketamine 500 mg/10 ML MDV ONE (07:39)
[2022-01-23] MEDS ORDERED: Propofol 200 MG/20 ML SDV ONE (07:46)
[2022-01-23] MEDS ORDERED: Ondansetron 4 MG/2 ML SDV ONE (07:56)
== END 2022-01-23 08:40 | disposition home or self-care (01) ==
LOC: MW.SDS 06:03
PROVIDERS: ATTEND Orthopaedic Surgery
DX: M65.311 Trigger thumb, right thumb (principal); J45.909 Unspecified asthma, uncomplicated; F32.A Depression, unspecified; F41.9 Anxiety disorder, unspecified; F17.200 Nicotine dependence, unspecified, uncomplicated; F17.210 Nicotine dependence, cigarettes, uncomplicated; E66.9 Obesity, unspecified; Z79.899 Other long term (current) drug therapy; Z91.040 Latex allergy status; Z88.6 Allergy status to analgesic agent; Z68.42 Body mass index [BMI] 45.0-49.9, adult
CPT/HCPCS: 81025; A9270-GY; J0131; J2250; J2405; J2704; J2795; J3010; J3490; J7120